=== PATIENT | female | born 1970 | race Caucasian/White ===

== ENCOUNTER 2018-05-07 20:31 | Emergency (ER) | payer MEDICAID ==
[~2018-05-07] VITALS: Ht 165.1 cm; Wt 57.3 kg
[2018-05-07 20:37] VITALS: BP 132/85; Ht 165.1 cm; Wt 57.3 kg
== END 2018-05-07 21:48 | disposition home or self-care (01) ==
LOC: ED 20:31
DX: L04.0 Acute lymphadenitis of face, head and neck (principal); K04.7 Periapical abscess without sinus; F17.210 Nicotine dependence, cigarettes, uncomplicated; Z88.0 Allergy status to penicillin

== ENCOUNTER 2018-05-12 16:09 | Emergency (ER) | payer MEDICAID ==
[~2018-05-12] VITALS: Ht 165.1 cm; Wt 57.6 kg
[2018-05-12 16:14] VITALS: Ht 165.1 cm; Wt 57.6 kg
[2018-05-12 17:10] VITALS: BP 126/72
== END 2018-05-12 17:10 | disposition home or self-care (01) ==
LOC: ED 16:09
DX: R59.0 Localized enlarged lymph nodes (principal); K03.81 Cracked tooth; Z88.0 Allergy status to penicillin

== ENCOUNTER 2018-05-16 17:28 | Emergency (ER) | payer MEDICAID ==
[~2018-05-16] VITALS: Ht 162.6 cm; Wt 56.7 kg
[2018-05-16 17:43] VITALS: BP 140/73; Ht 162.6 cm; Wt 56.7 kg
== END 2018-05-16 19:01 | disposition home or self-care (01) ==
LOC: ED 17:28
DX: K02.9 Dental caries, unspecified (principal); K12.0 Recurrent oral aphthae; F17.210 Nicotine dependence, cigarettes, uncomplicated; Z88.0 Allergy status to penicillin
CPT/HCPCS: 99406